=== PATIENT | female | born 1955 | race African-American/Black ===

== ENCOUNTER 2016-04-10 19:10 | Emergency (ER) | payer MEDICARE, MEDICAID ==
[2016-04-10] MEDS ORDERED: METHYLPRED SOD SUCC 125 MG/2 ML VIAL ONE (20:56)
[2016-04-10] MEDS ORDERED: KETOROLAC 30 MG/ML VIAL ONE (20:56)
== END 2016-04-10 22:48 | disposition home or self-care (01) ==
LOC: ER 19:10
DX: M79.671 Pain in right foot (principal); J20.9 Acute bronchitis, unspecified; M10.071 Idiopathic gout, right ankle and foot; Z79.899 Other long term (current) drug therapy; Z79.82 Long term (current) use of aspirin; I11.0 Hypertensive heart disease with heart failure; I50.9 Heart failure, unspecified; E78.5 Hyperlipidemia, unspecified; Z95.1 Presence of aortocoronary bypass graft; F32.9 Major depressive disorder, single episode, unspecified
CPT/HCPCS: 36415; 71020; 73630; 80053; 83880; 84550; 85025; 85652; 96374; 96375; 99285; J1885; J2930